=== PATIENT | female | born 2005 | race Caucasian/White ===

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

== ENCOUNTER 2023-01-14 23:02 | Emergency (ER) | payer SELFPAY ==
[2023-01-14] MEDS ORDERED: Ibuprofen 600 MG TAB ONE (23:17)
== END 2023-01-14 23:46 | disposition home or self-care (01) ==
LOC: MADERS 23:02
DX: S70.11XA Contusion of right thigh, initial encounter (principal); F17.290 Nicotine dependence, other tobacco product, uncomplicated; W20.8XXA Other cause of strike by thrown, projected or falling object, initial encounter

== ENCOUNTER 2023-12-09 21:57 | Emergency (ER) | payer SELFPAY ==
[2023-12-09] MEDS ORDERED: Ketorolac Tromethamine 30 MG (1 mL) VIAL ONE (22:16)
[2023-12-09] MEDS ORDERED: Sodium Chloride 0.9% 1,000 ML ONE (22:16)
[2023-12-09 22:18] LABS: #Basophils 0.1 thou/uL (0.0-0.2); #Eosinphils 0.1 thou/uL (0.0-0.7); #Lymphocytes 1.8 thou/uL (1.20-3.40); #Monocytes 0.3 thou/uL (0.11-0.59); #Neutrophils 2.1 thou/uL (1.40-6.50); %Basophils 1.6 % (0.0-1.0); %Eosinophils 2.4 % (0.0-10.0); %Lymphocytes 40.9 % (28.0-48.0); %Monocytes 6.4 % (0.0-4.0); %Neutrophils 48.7 % (31.0-61.0); Hematocrit 42.7 % (36.0-47.0); Hemoglobin 13.3 g/dL (12.0-16.0); Mean Corpuscular HGB CONC 31.1 g/dL (32.0-36.0); Mean Corpuscular Hemoglobin 29.2 pg (25.0-35.0); Mean Corpuscular Volume 93.9 fl (78.0-98.0); Mean Platelet Volume 10.5 fL (7.4-10.4); Platelet Count 158 10x3/uL (130-400); RBC Distribution Width 11.8 % (11.5-14.5); Red Blood Cell (RBC) Count 4.54 mill/uL (4.00-5.20); White Blood Cell (WBC) Count 4.3 10x3/uL (4.8-10.8)
[2023-12-09] MEDS ORDERED: diphenhydrAMINE 50 MG/ML VIAL ONE (22:24)
[2023-12-09] MEDS ORDERED: Metoclopramide HCl 10 MG (2 mL) VIAL ONE (22:24)
[2023-12-09 22:28] LABS: BHCG - Serum Negative (NEGATIVE); Pregs Control Background? CLEAR/WHITE (CLR/WHITE); Pregs Control Bar Appear? YES (CONTROL BAR)
[2023-12-09] MEDS ORDERED: diphenhydrAMINE 25 MG CAP ONE (22:33)
[2023-12-09 22:34] LABS: ALT (SGPT) Less than 7 U/L (8-55); AST (SGOT) 11 U/L (5-34); Albumin 4.3 g/dL (3.5-5.0); Alkaline Phosphatase 47 U/L (40-100); Anion Gap 15 mmol/L (10-20); BUN (Urea Nitrogen) 6 mg/dL (7.0-18.7); Bilirubin, Total 0.6 mg/dL (0.2-1.2); Calc. Creatinine Clearance 0 mL/min (70-130); Calcium 9.3 mg/dL (7.8-10.44); Carbon Dioxide 22 mmol/L (22-29); Chloride 109 mmol/L (98-107); Estimated GFR 101; Globulin 2.2 g/dL (2.4-3.5); Glucose 89 mg/dL (70-105); Potassium 3.9 mmol/L (3.5-5.1); Protein, Total 6.5 g/dL (6.0-8.3); Sodium 142 mmol/L (136-145)
== END 2023-12-09 22:25 | disposition home or self-care (01) ==
LOC: MADERS 21:57
DX: R51.9 Headache, unspecified (principal); F17.290 Nicotine dependence, other tobacco product, uncomplicated
CPT/HCPCS: 71045; 80053; 84443; 84703; 85025; 93005; 96361; 96374; 96375; J1200; J1885; J2765; J7050